=== PATIENT | male | born 1950 | race Caucasian/White ===

== ENCOUNTER 2016-11-12 11:28 | Emergency (ER) | payer OTHER ==
[~2016-11-12] VITALS: Ht 165.1 cm; Wt 66.5 kg
[~2016-11-12 11:28] MED LIST: IBUPROFEN; LIPITOR; OMEPRAZOLE
[2016-11-12 11:32] VITALS: Ht 165.1 cm; Wt 66.5 kg
--- NOTE | 2016-11-12 13:36 | RADRPT ---
PROCEDURE: CT brain without contrast CLINICAL INDICATION: Fall, head pain TECHNIQUE: CT of the brain without contrast performed on a multidetector CT scanner, with multiplan ar reformats. One or more of the following dose reduction techniques were used: Automated exposure control, adjustment in mA and / or kV according to patient size, use of iterative reconstructive leah hnique. CTDIvol = 44 mGy; DLP = 720 mGy-cm. COMPARISON: None available FINDINGS: No acute intracranial hemorrhage is identified. No extra-axial fluid collection is seen. There is no mass effect. No midline shift is identified. The ventricles and sulci are mildly enlarged compatible with volume loss. There are minimal areas of hypodensity in the periventricular - deep white matter which are nonspeci fic but suggestive of chronic small vessel ischemic changes. Gutierrez-white differentiation is preserve d. Atherosclerotic calcifications of the intracranial internal carotid arteries are noted. There is a left pterional craniotomy. Mastoid air cells and imaged paranasal sinuses grossly clear. IMPRESSION: 1. No evidence of acute intracranial pathology. 2. Mild volume loss, with minimal chronic small vessel ischemic changes. 3. Status post left pterional craniotomy. RPTAT: VV .Wayne Yin MD, Date Time Electronically viewed and signed by .Wayne Yin MD, on 11/12/2016 13:36 .O/
--- NOTE | 2016-11-12 13:44 | RADRPT ---
PROCEDURE: CT orbits without contrast CLINICAL INDICATION: Fall, right eye contusion TECHNIQUE: A CT of the orbits without contrast was performed on a multidetector CT scanner, with m ultiplanar reformats. Coronal and sagittal images were also reformatted. One or more of the followi ng dose reduction techniques were used: Automated exposure control, adjustment in mA and / or kV acc ording to patient size, use of iterative reconstructive technique. The exam CTDIvol = 29 mGy and DL P = 280 mGy-cm. COMPARISON: None available. FINDINGS: Right periorbital soft tissue swelling is seen without underlying fracture or injury of the orbital structures identified. The bilateral orbital structures are intact. Bilateral bony orbits are intact . No soft tissue gas or radiopaque foreign body is seen. Noted are small right maxillary sinus mucou s retention cyst, mild right and minimal left maxillary sinus mucosal thickening. A chronic appearin g fracture is seen at the right zygomatic arch. A left pterional craniotomy is again noted. IMPRESSION: 1. Right periorbital soft tissue swelling, without underlying orbital fracture/injury identified. 2. Chronic-appearing right zygomatic arch fracture. 3. Paranasal sinus disease described above. RPTAT: VV .Wayne Yin MD, Date Time Electronically viewed and signed by .Wayne Yin MD, on 11/12/2016 13:44 .O/
[2016-11-12] MEDS ORDERED: IBUP-1542 PO (16:05)
[2016-11-12 16:48] VITALS: BP 123/72; PULSE 58; RESP 18
--- NOTE | 2016-11-12 17:23 | RADRPT ---
PROCEDURE: US bilateral orbital globes CLINICAL INDICATION: Right orbital trauma. Evaluate for right in the detachment. TECHNIQUE: Multiple sonographic images of the bilateral orbital globes were obtained. The images w ere reviewed on a PACS workstation. COMPARISON: CT brain and 08/2016 FINDINGS: Limited sonographic evaluation of bilateral orbital globes demonstrates no evidence of retinal detac hment, choroidal detachment or definite mobile vitreal echogenic foci to suggest vitreal hemorrhage. There is no obvious lens displacement. IMPRESSION: No sonographic evidence of retinal detachment, choroidal detachment or vitreal hemorrhage. If there is continued clinical concern, recommend correlation with funduscopic examination. RPTAT: QQ Physician Liana Date Time Electronically viewed and signed by Physician Liana on 11/12/2016 17:22 WINNIE/
--- NOTE | 2016-11-13 10:06 | ERD ---
ER Documentation Chief Complaint Date/Time DATE: 11/13/16 TIME: 09:59 Chief Complaint right eye pain s/p mechanical fall on thursday HPI 65-year-old male complaining of pain around the orbit of his right eye after a fall 5 days ago. He tripped on the sidewalk, and fell forward onto the corner of a concrete block, hit around the right eye. He reports pain surrounding the orbit, but no pain in the eye. He does report increased hearing since the fall , elsewhere as seeing floaters. Denies decrease in vision. Denies loss of consciousness. Denies nausea or vomiting. Denies confusion or memory loss. ROS All systems reviewed and are negative except as per history of present illness. Medications Home Meds Active Scripts Ibuprofen* (Motrin*) 600 Mg Tab, 600 MG PO Q6H Y for PAIN AND OR ELEVATED TEMP, #30 TAB Prov:ERINROMEL X. TV PRODUCTION ASSISTANT 11/12/16 Reported Medications [Lipitor] No Conflict Check 09/21/15 [Ibuprofen] No Conflict Check 09/21/15 [Omeprazole] No Conflict Check 09/21/15 Allergies Allergies: Coded Allergies: No Known Allergy (Unverified , 09/21/15) PMhx/Soc History of Surgery: Yes (LEFT EAR SX) Anesthesia Reaction: No Hx Neurological Disorder: No Hx Respiratory Disorders: No Hx Cardiac Disorders: Yes (HYPERLIPIDEMIA) Hx Psychiatric Problems: No Hx Miscellaneous Medical Probl: No Hx Alcohol Use: No Hx Substance Use: No Hx Tobacco Use: Yes Smoking Status: Current every day smoker Physical Exam Vitals Vital Signs Date Time Temp Pulse Resp B/P Pulse Ox O2 Delivery O2 Flow Rate FiO2 11/12/16 16:48 58 18 123/72 99 Room Air 11/12/16 11:32 98.6 68 18 133/72 99 Physical Exam General: Patient is well-developed. Awake, alert, and conversant, in no apparent distress Skin: Warm and dry Head: Normocephalic, atraumatic without palpable deformities Eyes: Pupils equal, round, and reactive to light. Extraocular movements intact. Right periorbital ecchymosis without step-off Ears: Canals patent. Tympanic membranes are clear. No hughes sign. No hemotympanum Nose/face: Atraumatic. Facial bones are nontender to palpation and stable with attempts at manipulation Neck: No midline point tenderness, step-off, or deformity to firm palpation of posterior cervical spine. Trachea midline. Carotids equal. No masses. No JVD. Full range of motion of the neck without limitation or pain Chest: No surface trauma. Nontender without crepitus or deformity. No palpable subcutaneous air. Lungs have good tidal volume, lungs clear to auscultate bilaterally Heart: Regular rate and rhythm. No murmur, rub, or gallop Back: No contusions, ecchymosis, or abrasions are noted. Nontender without step-off or deformity to firm midline palpation. No CVA tenderness or flank ecchymosis Extremities: No surface trauma. Full range of motion without limitation or pain. Good strength in all extremities. Sensation to light touch intact. All peripheral pulses are intact and equal Neuro: Alert and oriented 4, GCS 15, cranial nerves II through XII intact. Motor and sensory exam is nonfocal. Reflexes are symmetric Results 24 hrs PROCEDURE: CT brain without contrast CLINICAL INDICATION: Fall, head pain TECHNIQUE: CT of the brain without contrast performed on a multidetector CT scanner, with multiplanar reformats. One or more of the following dose reduction techniques were used: Automated exposure control, adjustment in mA and / or kV according to patient size, use of iterative reconstructive technique. CTDIvol = 44 mGy; DLP = 720 mGy-cm. COMPARISON: None available FINDINGS: No acute intracranial hemorrhage is identified. No extra-axial fluid collection is seen. There is no mass effect. No midline shift is identified. The ventricles and sulci are mildly enlarged compatible with volume loss. There are minimal areas of hypodensity in the periventricular - deep white matter which are nonspecific but suggestive of chronic small vessel ischemic changes. Gutierrez-white differentiation is preserved. Atherosclerotic calcifications of the intracranial internal carotid arteries are noted. There is a left pterional craniotomy. Mastoid air cells and imaged paranasal sinuses grossly clear. IMPRESSION: 1. No evidence of acute intracranial pathology. 2. Mild volume loss, with minimal chronic small vessel ischemic changes. 3. Status post left pterional craniotomy. RPTAT: VV .Wayne Yin MD, MD Date Time Electronically viewed and signed by .Wayne Yin MD, MD on 11/12/2016 13:36 .O/ CC: ROMEL KHAN TV PRODUCTION ASSISTANT PROCEDURE: CT orbits without contrast CLINICAL INDICATION: Fall, right eye contusion TECHNIQUE: A CT of the orbits without contrast was performed on a multidetector CT scanner, with multiplanar reformats. Coronal and sagittal images were also reformatted. One or more of the following dose reduction techniques were used: Automated exposure control, adjustment in mA and / or kV according to patient size, use of iterative reconstructive technique. The exam CTDIvol = 29 mGy and DLP = 280 mGy-cm. COMPARISON: None available. FINDINGS: Right periorbital soft tissue swelling is seen without underlying fracture or injury of the orbital structures identified. The bilateral orbital structures are intact. Bilateral bony orbits are intact. No soft tissue gas or radiopaque foreign body is seen. Noted are small right maxillary sinus mucous retention cyst, mild right and minimal left maxillary sinus mucosal thickening. A chronic appearing fracture is seen at the right zygomatic arch. A left pterional craniotomy is again noted. IMPRESSION: 1. Right periorbital soft tissue swelling, without underlying orbital fracture/ injury identified. 2. Chronic-appearing right zygomatic arch fracture. 3. Paranasal sinus disease described above. RPTAT: VV .Wayne Yin MD, MD Date Time Electronically viewed and signed by .Wayne Yin MD, MD on 11/12/2016 13:44 .O/ CC: ROMEL KHAN NP PROCEDURE: US bilateral orbital globes CLINICAL INDICATION: Right orbital trauma. Evaluate for right in the detachment. TECHNIQUE: Multiple sonographic images of the bilateral orbital globes were obtained. The images were reviewed on a PACS workstation. COMPARISON: CT brain and 08/2016 FINDINGS: Limited sonographic evaluation of bilateral orbital globes demonstrates no evidence of retinal detachment, choroidal detachment or definite mobile vitreal echogenic foci to suggest vitreal hemorrhage. There is no obvious lens displacement. IMPRESSION: No sonographic evidence of retinal detachment, choroidal detachment or vitreal hemorrhage. If there is continued clinical concern, recommend correlation with funduscopic examination. RPTAT: QQ Physician Liana Date Time Electronically viewed and signed by Halley Dobbs Physician on 11/12/2016 17: 22 RC/ CC: ROMEL KHAN TV PRODUCTION ASSISTANT Procedures/MDM Well-appearing 65-year-old male present ED with right periorbital pain and ecchymosis after a ground-level fall [address] showed no evidence of acute intracranial pathology. CT of the orbits showed right periorbital soft tissue swelling, without underlying fracture or injury. Chronic appearing right zygomatic arch fracture is noted. Soft tissue ultrasound of the eye showed no evidence of retinal detachment, choroidal detachment, or vitreal hemorrhage. Patient pain is under control. Patient appears well, stable for discharge and outpatient management. Medical decision making shared with patient and family. Education provided to patient and family. Patient and family expressed understanding of the plan. Medications on discharge: Ibuprofen. Follow-up: Primary care provider in 2-3 days or return to ED if worse. Disclaimer: Inadvertent spelling and grammatical errors are likely due to EHR/ dictation software use and do not reflect on the overall quality of patient care. Also, please note that the electronic time recorded on this note does not necessarily reflect the actual time of the patient encounter. Departure Diagnosis: Primary Impression: Contusion of right orbit Condition: Stable Patient Instructions: Facial Contusion, No Wakeup Referrals[facility] Usted se hargrove hecho un examen mdico de control que le indica que no est en diana condicin que requiera tratamiento urgente en el Departamento de Emergencia. Un estudio ms profundo y el tratamiento de yin condicin pueden esperar sin ningn riesgo hasta que usted sea atendida/o en el consultorio de yin mdico o diana cl susanna. Es responsabilidad suya arreglar diana cora para el seguimiento del manisha. MANEJO DE CONDICIONES NO URGENTES EN EL FUTURO 1) Si usted tiene un mdico de atencin primaria: Usted debera llamar a yin mdico de atencin primaria antes de venir al departamento de emergencia. Despus de las horas de consultorio, yin doctor o yin asociado/a est disponible por telfono. El mdico o enfermero de landon en el servicio telefnico puede asesorarle por luiz medio para atender el problema, o manisha contrario se puede programar diana cora. 2) Si usted no tiene un mdico de atencin primaria: Llame al mdico o clnica de referencia que aparece abajo castro las horas de consultorio para hacer diana cora para que le vean. CLINICAS: [place] [phone] [facility] [phone] [facility] [phone] [facility]. [place] [phone] [facility]. [place] [phone] [place] [phone] Additional Instructions: Llame al doctor MAANA y joesph diana CORA PARA DENTRO DE 2-3 CARRILLO.Dgale a la secretaria que nosotros le instruimos hacer esta cora.Avise o llame si yin condicin se empeora antes de la cora. Regresa aqui si peor o no mejor. ROMEL KHAN NP Nov 13, 2016 10:06
== END 2016-11-12 16:49 | disposition home or self-care (01) ==
LOC: FTE 11:28
DX: S05.11XA Contusion of eyeball and orbital tissues, right eye, initial encounter (principal); F17.210 Nicotine dependence, cigarettes, uncomplicated; W01.198A Fall on same level from slipping, tripping and stumbling with subsequent striking against other object, initial encounter; Y92.9 Unspecified place or not applicable
CPT/HCPCS: 70450; 70480; 76536; Z7502

== ENCOUNTER 2017-08-31 05:40 | Day surgery (SDC) | END 2017-08-31 10:10 | disposition home or self-care (01) ==